=== PATIENT | female | born 1960 | race Caucasian/White ===

== ENCOUNTER 2016-12-26 23:24 | Inpatient (IN) | payer OTHER ==
[~2016-12-26] VITALS: Ht 162.6 cm; Wt 80.1 kg
[2016-12-26 23:28] VITALS: BP 169/81; PULSE 99; RESP 18; TEMP 98.1; O2SAT 100
--- NOTE | 2016-12-26 23:50 | PD ---
HPI Chief Complaint: Fall Time Seen by Provider: 23:30 Travel History International Travel<30 days: No Contact w/Intl Traveler<30days: No Traveled to known affect area: No History of Present Illness HPI 56-year-old female complains of right ankle pain. Patient treatment fell this evening. Patient denies loss of consciousness. Patient denies any headache or neck pain. Patient denies any chest pain or shortness of breath. Patient denies abdominal pain. Patient complaining sharp pain localized to right ankle. Patient denies any pain radiation. Patient denies any medical problem. Patient's not on any routine medication. PFSH Past Medical History ?: Not LMP: menapause Social History Tobacco Use: No Allergies-Medications (Allergen,Severity, Reaction): Coded Allergies: Augmentin (Verified Allergy, Unknown, 12/26/16) Sulfa (Verified Allergy, Unknown, 12/26/16) Reported Meds & Prescriptions Reported Meds & Active Scripts Active Aspirin EC (Aspirin) 325 Mg Tabdr 325 Mg PO DAILY Frederick (Hydrocodone-Acetaminophen) 10-325 Mg Tab 1-2 Tab PO Q4H PRN Review of Systems General / Constitutional: No: Fever Eyes: No: Visual changes HENT: No: Headaches Cardiovascular: No: Chest Pain or Discomfort Respiratory: No: Shortness of Breath Gastrointestinal: No: Abdominal Pain Genitourinary: No: Dysuria Musculoskeletal: Positive: Pain Skin: No Rash Neurologic: No: Weakness Psychiatric: No: Depression Endocrine: No: Polydipsia Hematologic/Lymphatic: No: Easy Bruising Physical Exam Narrative GENERAL: Well-nourished, well-developed patient. SKIN: Focused skin assessment warm/dry. HEAD: Normocephalic. EYES: No scleral icterus. No injection or drainage. NECK: Supple, trachea midline. No JVD or lymphadenopathy. CARDIOVASCULAR: Regular rate and rhythm without murmurs, gallops, or rubs. RESPIRATORY: Breath sounds equal bilaterally. No accessory muscle use. GASTROINTESTINAL: Abdomen soft, non-tender, nondistended. MUSCULOSKELETAL: No cyanosis, or edema. BACK: Nontender without obvious deformity. No CVA tenderness. Patient has a 6 cm laceration medial malleolus of the right ankle with bony exposure and ankle dislocation laterally. DP pulse present dorsal aspect right foot. Good capillary refill. Sensory function intact. Data Data Last Documented VS Vital Signs Date Time Temp Pulse Resp B/P Pulse Ox O2 Delivery O2 Flow Rate FiO2 12/27/16 01:25 94 2.00 12/27/16 01:09 97 18 137/75 Room Air 12/26/16 23:28 98.1 Orders Electrocardiogram (12/26/16 23:38) Complete Blood Count With Diff (12/26/16 23:38) Prothrombin Time / Inr (Pt) (12/26/16 23:38) Act Partial Throm Time (Ptt) (12/26/16 23:38) Urinalysis - C+S If Indicated (12/26/16 23:38) Chest, Single Ap (12/26/16 23:38) Iv Access Insert/Monitor (12/26/16 23:38) Ecg Monitoring (12/26/16 23:38) Oximetry (12/26/16 23:38) Urinary Catheter Insert/Apply (12/26/16 23:38) Type And Screen (12/26/16 23:38) Ankle, Limited (Ap&Lat) (12/26/16 23:38) Splint Or Brace Apply/Monitor (12/26/16 23:44) Sodium Chlor 0.9% 1000 Ml Inj (Ns 1000 M (12/27/16 00:00) Clindamycin Inj (Cleocin Inj) (12/27/16 00:00) Morphine Inj (Morphine Inj) (12/27/16 00:00) Ondansetron Inj (Zofran Inj) (12/27/16 00:00) Midazolam Inj (Versed Inj) (12/27/16 00:00) Comprehensive Metabolic Panel (12/27/16 00:04) Ankle, Limited (Ap&Lat) (12/27/16 ) Morphine Inj (Morphine Inj) (12/27/16 02:00) Admit Order (Ed Use Only) (12/27/16 02:09) Consult Orthopedic (12/27/16 ) Labs Laboratory Tests Test 12/26/16 12/27/16 12/27/16 12/27/16 23:55 00:42 00:44 01:45 White Blood Count 9.1 TH/MM3 Red Blood Count 4.52 MIL/MM3 Hemoglobin 15.5 GM/DL Hematocrit 44.7 % Mean Corpuscular Volume 98.9 FL Mean Corpuscular Hemoglobin 34.3 PG Mean Corpuscular Hemoglobin 34.7 % Concent Red Cell Distribution Width 15.7 % Platelet Count 207 TH/MM3 Mean Platelet Volume 9.8 FL Neutrophils (%) (Auto) 55.1 % Lymphocytes (%) (Auto) 29.6 % Monocytes (%) (Auto) 10.0 % Eosinophils (%) (Auto) 3.7 % Basophils (%) (Auto) 1.6 % Neutrophils # (Auto) 5.0 TH/MM3 Lymphocytes # (Auto) 2.7 TH/MM3 Monocytes # (Auto) 0.9 TH/MM3 Eosinophils # (Auto) 0.3 TH/MM3 Basophils # (Auto) 0.1 TH/MM3 CBC Comment AUTO DIFF Differential Comment AUTO DIFF CONFIRMED Blood Type O NEGATIVE Antibody Screen NEGATIVE Blood Bank Comment Prothrombin Time 10.4 SEC Prothromb Time International 0.9 RATIO Ratio Activated Partial 25.6 SEC Thromboplast Time Sodium Level 138 MEQ/L Potassium Level 6.0 MEQ/L Chloride Level 105 MEQ/L Carbon Dioxide Level 25.6 MEQ/L Anion Gap 7 MEQ/L Blood Urea Nitrogen 10 MG/DL Creatinine 0.71 MG/DL Estimat Glomerular Filtration 85 ML/MIN Rate Random Glucose 101 MG/DL Calcium Level 8.9 MG/DL Total Bilirubin 0.4 MG/DL Aspartate Amino Transf 121 U/L (AST/SGOT) Alanine Aminotransferase 97 U/L (ALT/SGPT) Alkaline Phosphatase 83 U/L Total Protein 8.4 GM/DL Albumin 3.8 GM/DL Urine Color LIGHT-YELLOW Urine Turbidity CLEAR Urine pH 6.0 Urine Specific [place] 1.005 Urine Protein NEG mg/dL Urine Glucose (UA) NEG mg/dL Urine Ketones NEG mg/dL Urine Occult Blood NEG Urine Nitrite NEG Urine Bilirubin NEG Urine Urobilinogen LESS THAN 2.0 MG/DL Urine Leukocyte Esterase TRACE Urine RBC LESS THAN 1 /hpf Urine WBC 4 /hpf Urine Squamous Epithelial 1 /hpf Cells Microscopic Urinalysis Comment CULT NOT INDICATED MDM Medical Decision Making Medical Screen Exam Complete: Yes Emergency Medical Condition: Yes Interpretation(s) Last Impressions Ankle X-Ray 12/27/16 0000 Signed Impressions: Service Date/Time: Tuesday, December 27, 2016 01:40 - CONCLUSION: 1. Satisfactory post reduction of the previously noted joint dislocation. 2. Trimallor fracture. John Robb MD Chest X-Ray 12/26/168 Signed Impressions: Service Date/Time: Tuesday, December 27, 2016 00:28 - CONCLUSION: Unremarkable exam. John Robb MD Ankle X-Ray 12/26/168 Signed Impressions: Service Date/Time: Tuesday, December 27, 2016 00:22 - CONCLUSION: Fracture and joint dislocation the mortise joint. John Robb MD 3:13 AM. CBC within normal limit. Potassium 6.0. UA is negative. Differential Diagnosis Differential diagnosis including open fracture with dislocation right ankle. Narrative Course 56-year-old female with right ankle injury. Normal saline solution 1 25 cc an hour. Morphine 4 mg IV. Zofran 4 mg IV. VERSED 5 mg IV. Clindamycin 600 mg IV. Craven splint applied right ankle postreduction. Patient was given medications by Dr. Guadalupe. Critical Care Narrative Aggregate critical care time was 30 minutes. Time to perform other separately billable procedures was not included in the critical care time. My time did not include minutes spent treating any other patients simultaneously or on activities that did not directly contribute to the patient's treatment. The services I provided to this patient were to treat and/or prevent clinically significant deterioration that could result in: I provided critical care services requiring my management, as noted below: Chart data review, documentation time, medication orders and management, vital sign assessments/reviewing monitor data, ordering and reviewing lab tests, ordering and interpreting/reviewing x-rays and diagnostic studies, care of the patient and discussion of the patient with the admitting physicians. Procedures Procedure Narrative Conscious sedation procedure. Patient was connected to secretary office clerk and pulse oximetry monitor. O2 2 L nasal cannula. IV established. Patient was given Versed 5 mg IV and morphine 4 mg IV. Patient was well sedated. Reduction of right ankle dislocation performed with gentle traction. Betadine dressing applied to the wound. The right ankle was well padded with gauze. Craven splint applied. Postreduction x -ray obtained. Patient woke up instable condition postprocedure. Diagnosis Primary Impression: Open trimalleolar fracture of right ankle Qualified Code: S82.851C - Open trimalleolar fracture of right ankle, type III , initial encounter Additional Impressions: Dislocation of ankle, right, open Qualified Code: S93.04XA - Dislocation of ankle, right, open, initial encounter Hyperkalemia Admitting Information Admitting Physician Requests: Admit Scripts Aspirin DR (Aspirin EC)325 Mg [id number] Mg PO DAILY #30 TAB Ref 0 Prov:Wang Castillo MD 12/27/16 Hydrocodone-Acetaminophen ([place])10-325 Mg Tab1-2 Tab PO Q4H PRN (PAIN) #60 TAB Ref 0 Prov:Wang Castillo MD 12/27/16 Jamey Hodges MD December 26, 2016 23:50
[2016-12-27] VITALS (11 sets, daily range): BP systolic 108–137; BP diastolic 63–78; PULSE 75–99; RESP 15–18; TEMP 95.8–98.1; O2SAT 94–99
[2016-12-27] MEDS ORDERED: SODIUM CHLOR 0.9% 1000 ML INJ 1,000 ML IV SCH
[2016-12-27] MEDS ORDERED: ONDANSETRON HCL 4 MG/2 ML VIAL IV PUSH ONE
[2016-12-27] MEDS ORDERED: MIDAZOLAM HCL 5 MG/ML VIAL (1 ML) IV PUSH ONE
[2016-12-27] MEDS ORDERED: CLINDAMYCIN INJ 600 MG in SODIUM CHLORIDE 0.9% INJ 100 ML IV ONE ×2
[2016-12-27 00:22] LABS: BASOPHIL # 0.1 TH/MM3 (0-0.2); BASOPHIL % 1.6 % (0.0-2.0); EOSINOPHIL # 0.3 TH/MM3 (0-0.4); EOSINOPHIL % 3.7 % (0.0-4.0); HEMATOCRIT 44.7 % (35.0-46.0); LYMPH % 29.6 % (9.0-44.0); LYMPHOCYTE # 2.7 TH/MM3 (1.0-4.8); MEAN CELL VOLUME 98.9 FL (80.0-100.0); MEAN CORPUSCULAR HEMOGLOBIN 34.3 PG (27.0-34.0); MEAN CORPUSCULAR HGB CONC 34.7 % (32.0-36.0); NEUT % 55.1 % (16.0-70.0); PLATELET COUNT 207 TH/MM3 (150-450); RED BLOOD COUNT 4.52 MIL/MM3 (4.00-5.30); RED CELL DISTRIBUTION WIDTH 15.7 % (11.6-17.2); WHITE BLOOD COUNT 9.1 TH/MM3 (4.0-11.0)
[2016-12-27 00:45] LABS: ALKALINE PHOSPHATASE 83 U/L (45-117); TOTAL BILIRUBIN ADULT 0.4 MG/DL (0.2-1.0)
[2016-12-27 00:54] LABS: HEMO FLAGS AUTO DIFF
--- NOTE | 2016-12-27 00:56 | RADRPT ---
EXAM DATE/TIME: 12/27/2016 00:28 [facility] COMPARISON: No previous studies available for comparison. INDICATIONS : Shortness of breath. Evaluation for any pulmonary disease as patient is having ankle surgery. MEDICAL HISTORY : None. SURGICAL HISTORY : None. ENCOUNTER: Initial ACUITY: 1 day PAIN SCORE: 0/10 LOCATION: Bilateral chest FINDINGS: A single view of the chest demonstrates the lungs to be symmetrically aerated without evidence of mas s, infiltrate or effusion. The cardiomediastinal contours are unremarkable. Osseous structures are intact. CONCLUSION: Unremarkable exam. John Robb MD on December 27, 2016 at 0:54 Board Certified Radiologist. This report was verified electronically.
--- NOTE | 2016-12-27 01:01 | RADRPT ---
EXAM DATE/TIME: 12/27/2016 00:22 [facility] COMPARISON: No previous studies available for comparison. INDICATIONS : Open right dislocation with possible fracture of the right ankle after a fall. MEDICAL HISTORY : None. SURGICAL HISTORY : None. ENCOUNTER: Initial ACUITY: 1 day PAIN SCORE: 10/10 LOCATION: Right Ankle FINDINGS: The 2 views demonstrate a fracture joint dislocation at the mortise joint. There appears to be a frac ture involving the distal fibula and posterior tibia. There is joint dislocation at the mortise joint . CONCLUSION: Fracture and joint dislocation the mortise joint. John Robb MD on December 27, 2016 at 0:58 Board Certified Radiologist. This report was verified electronically.
[2016-12-27 01:13] LABS: ALT (GPT) 97 U/L (10-53); ANION GAP 7 MEQ/L (5-15); AST (GOT) 121 U/L (15-37); BICARBONATE 25.6 MEQ/L (21.0-32.0); BLOOD UREA NITROGEN 10 MG/DL (7-18); CHLORIDE 105 MEQ/L (98-107); GLOMERULAR FILTRATION RATE 85 ML/MIN (>89); SODIUM (NA) 138 MEQ/L (136-145)
[2016-12-27 01:28] LABS: APTT (PATIENT) 25.6 SEC (24.3-30.1); INTERNATIONAL NORMALIZED RATIO 0.9 RATIO; PROTHROMBIN TIME - PATIENT 10.4 SEC (9.8-11.6)
--- NOTE | 2016-12-27 01:52 | RADRPT ---
EXAM DATE/TIME: 12/27/2016 01:40 [facility] COMPARISON: ANKLE RIGHT LIMITED (AP&LAT), December 27, 2016, 0:22. INDICATIONS : Post reduction. MEDICAL HISTORY : None. SURGICAL HISTORY : None. ENCOUNTER: Subsequent ACUITY: 1 day PAIN SCORE: Non-responsive. LOCATION: Right ankle. FINDINGS: There is good alignment on this post reduction view compared to the prior study. There is good alignm ent the mortise joint. Fractures are identified involving the distal fibula and medial malleolus. The re is also a fracture of the posterior malleolus on the lateral view. CONCLUSION: 1. Satisfactory post reduction of the previously noted joint dislocation. 2. Trimallor fracture. John Robb MD on December 27, 2016 at 1:49 Board Certified Radiologist. This report was verified electronically.
[2016-12-27 01:57] LABS: BLOOD, URINE NEG (NEG); COMMENT (UR) CULT NOT INDICATED; CULTURE IF INDICATED CULT NOT INDICATED; GLUCOSE,URINE NEG (NEG); KETONE, URINE NEG (NEG); NITRITE,URINE NEG (NEG); SQUAMOUS EPITHELIAL CELL URINE 1 /hpf (0-5); URINE COLOR LIGHT-YELLOW (YELLW/STRAW)
[2016-12-27] MEDS ORDERED: MORPHINE SULFATE 4 MG/ML INJ IV PUSH ONE ×2 (02:00)
[2016-12-27] MEDS ORDERED: ACETAMINOPHEN 325 MG TAB PO PRN (02:15)
[2016-12-27] MEDS ORDERED: CALCIUM GLUCONATE 10% 1 GM/10 ML VIAL IV PUSH ONE (02:15)
[2016-12-27] MEDS ORDERED: BISACODYL 10 MG SUPP RECTAL PRN (02:15)
[2016-12-27] MEDS ORDERED: DEXTROSE 50% IN WATER 50 ML SYRINGE IV ONE (02:15)
[2016-12-27] MEDS ORDERED: MORPHINE SULFATE 4 MG/ML INJ IV PRN (02:15)
[2016-12-27] MEDS ORDERED: ONDANSETRON HCL 4 MG/2 ML VIAL IVP PRN ×2 (02:15→09:15)
[2016-12-27] MEDS ORDERED: SODIUM CHLORIDE 0.9% FLUSH 10 ML FLUSH IV FLUSH PRN (02:15)
[2016-12-27] MEDS ORDERED: INSULIN HUMAN REGULAR 1,000 UNITS/10 ML VIAL IV PUSH ONE (02:15)
[2016-12-27] MEDS: SODIUM CHLOR 0.9% 1000 ML INJ 1,000 ML IV SCH ×2 (02:51→15:24)
[2016-12-27 02:52] LABS: SCAN/DIFF AUTO DIFF CONFIRMED
[2016-12-27] MEDS: SODIUM CHLORIDE 0.9% FLUSH 10 ML FLUSH IV FLUSH SCH ×3 (02:57→20:34)
--- NOTE | 2016-12-27 04:03 | HHI.HP ---
[facility] Service [place] [facility] Primary Care Physician Unknown Admission Diagnosis compound fracture right ankle Diagnoses: (1) Open trimalleolar fracture of right ankle Diagnosis: Principal (2) Hyperkalemia Diagnosis: Principal (3) Dehydration Diagnosis: Principal (4) Elevated LFTs Diagnosis: Principal (5) HTN (hypertension) Diagnosis: Principal (6) Tobacco abuse Diagnosis: Principal Travel History International Travel<30 Days: No Contact w/Intl Traveler <30 Da: No Traveled to Known Affected Are: No History of Present Illness This is a 56-year-old female with no reported PMH who was brought to the ER secondary to right ankle pain after fall. Pt visiting from out of town and staying at [facility], states she tripped on the lip of the balcony door and twisted her ankle, felt immediate pain and unable to bare weight. On arrival, BP 169/81, HR 99, O2 sat 100% on RA, Afebrile. CBC unremarkable except for Hgb 15.5. K+ 6.0. GFR 85. AST 121, ALT 97. INR 0.9. UA negative. Ankle X-ray with fracture and joint dislocation, s/p reduction in ER. Repeat Ankle X-ray w / satisfactory post reduction of joint dislocation, trimalleolar fracture. CXR w/ no acute findings. Dr. Castillo consulted by ER physician, plan is for surgical intervention in am. Review of Systems Except as stated in HPI: all other systems reviewed are Neg ROS: 14 point review of systems otherwise negative. Past Family Social History Past Medical History PMH: None Past Surgical History PAST SURGICAL HISTORY: Salivary Gland Surgery Allergies: Coded Allergies: Augmentin (Verified Allergy, Unknown, 12/26/16) Sulfa (Verified Allergy, Unknown, 12/26/16) Family History PAST FAMILY HISTORY: Reviewed. No h/o DM or CAD Social History PAST SOCIAL HISTORY: Occasional alcohol. Positive for tobacco. Negative for drugs. Physical Exam Vital Signs Vital Signs Date Time Temp Pulse Resp B/P Pulse Ox O2 Delivery O2 Flow Rate FiO2 12/27/16 03:16 86 18 125/76 96 12/27/16 02:33 85 18 119/63 97 Nasal Cannula 4 12/27/16 01:25 94 2.00 12/27/16 01:09 97 18 137/75 99 Room Air 12/26/16 23:28 98.1 99 18 169/81 100 Physical Exam PE: GENERAL: Middle-aged female in no acute distress, sleepy after sedation. HEENT: PERRLA, EOMI. No scleral icterus or conjunctival pallor. No lid lag or facial droop. CARDIOVASCULAR: Regular rate and rhythm. No obvious murmurs to auscultation. No chest tenderness to palpation. RESPIRATORY: No obvious rhonchi or wheezing. Clear to auscultation. Breath sounds equal bilaterally. GASTROINTESTINAL: Abdomen soft, non-tender, nondistended. BS normal. MUSCULOSKELETAL: Extremities without clubbing, cyanosis, or edema. No obvious deformities. Decreased ROM of right ankle due to injury, s/p reduction. NEUROLOGICAL: Awake, alert and oriented x4. No focal neurologic deficits. Moving both upper and lower extremities spontaneously. Laboratory Laboratory Tests Test 12/26/16 12/27/16 12/27/16 12/27/16 23:55 00:42 00:44 01:45 White Blood Count 9.1 Red Blood Count 4.52 Hemoglobin 15.5 Hematocrit 44.7 Mean Corpuscular Volume 98.9 Mean Corpuscular Hemoglobin 34.3 Mean Corpuscular Hemoglobin 34.7 Concent Red Cell Distribution Width 15.7 Platelet Count 207 Mean Platelet Volume 9.8 Neutrophils (%) (Auto) 55.1 Lymphocytes (%) (Auto) 29.6 Monocytes (%) (Auto) 10.0 Eosinophils (%) (Auto) 3.7 Basophils (%) (Auto) 1.6 Neutrophils # (Auto) 5.0 Lymphocytes # (Auto) 2.7 Monocytes # (Auto) 0.9 Eosinophils # (Auto) 0.3 Basophils # (Auto) 0.1 CBC Comment AUTO DIFF Differential Comment AUTO DIFF CONFIRMED Blood Type O NEGATIVE Antibody Screen NEGATIVE Blood Bank Comment Prothrombin Time 10.4 Prothromb Time International 0.9 Ratio Activated Partial 25.6 Thromboplast Time Sodium Level 138 Potassium Level 6.0 Chloride Level 105 Carbon Dioxide Level 25.6 Anion Gap 7 Blood Urea Nitrogen 10 Creatinine 0.71 Estimat Glomerular Filtration 85 Rate Random Glucose 101 Calcium Level 8.9 Total Bilirubin 0.4 Aspartate Amino Transf 121 (AST/SGOT) Alanine Aminotransferase 97 (ALT/SGPT) Alkaline Phosphatase 83 Total Protein 8.4 Albumin 3.8 Urine Color LIGHT-YELLOW Urine Turbidity CLEAR Urine pH 6.0 Urine Specific [place] 1.005 Urine Protein NEG Urine Glucose (UA) NEG Urine Ketones NEG Urine Occult Blood NEG Urine Nitrite NEG Urine Bilirubin NEG Urine Urobilinogen LESS THAN 2.0 Urine Leukocyte Esterase TRACE Urine RBC LESS THAN 1 Urine WBC 4 Urine Squamous Epithelial 1 Cells Microscopic Urinalysis Comment CULT NOT INDICATED Result Diagram: 12/26/16 3618 12/27/16 0044 Assessment and Plan Problem List: (1) Open trimalleolar fracture of right ankle ICD Code: S82.851B Status: Acute (2) Dehydration ICD Code: E86.0 Status: Acute (3) Hyperkalemia ICD Code: E87.5 Status: Acute (4) Elevated LFTs ICD Code: R94.5 Status: Acute (5) HTN (hypertension) ICD Code: I10 Status: Acute (6) Tobacco abuse ICD Code: Z72.0 Status: Acute Assessment and Plan A/P: 1. Right Open Ankle Fx: s/p mechanical trip and fall, Ankle X-ray w/ fracture and joint dislocation, s/p reduction in ER w/ repeat Ankle X-ray showing satisfactory post reduction of joint dislocation and trimalleolar fracture, images reviewed by me. Dr. Castillo consulted by ER physician, plan is for surgical intervention in am. NPO, IVF, analgesics/antiemetics as needed. 2. Dehydration: GFR 85, no previous labs for comparison. +Hemoconcentrated w / Hgb 15.5, possibly related to tobacco abuse as well. IVF for hydration, repeat labs in am. 3. Hyperkalemia: K+ 6.0, give Ca/Insulin/D50, repeat labs in am. 4. Elevated LFTs: AST 121, ALT 97, ALP 83, no previous labs for comparison. Repeat labs in am. 5. HTN: BP on arrival, 169/81, HR 99, likely compounded by pain, no h/o HTN, BP currently 125/76, HR 86, will monitor. 6. Tobacco Abuse: Counselled. NicoDerm prn if needed. 7. DVT Prophylaxis: Anticoagulation post op per Ortho 8. Social work for DC planning as needed. 9. Case discussed at length with ER physician. Physician Certification 2 Midnight Certification Type: Admission for Inpatient Services Order for Inpatient Services The services are ordered in accordance with Medicare regulations or non- Medicare payer requirements, as applicable. In the case of services not specified as inpatient-only, they are appropriately provided as inpatient services in accordance with the 2-midnight benchmark. Estimated LOS (days): 2 days is the estimated time the patient will need to remain in the hospital, assuming treatment plan goals are met and no additional complications. Post-Hospital Plan: Not yet determined Problem Qualifiers (1) Open trimalleolar fracture of right ankle: Qualified Code: S82.851C - Open trimalleolar fracture of right ankle, type III , initial encounter Ani Guadalupe MD December 27, 2016 04:03
[2016-12-27] MEDS ORDERED: GENTAMICIN SULFATE 80 MG/2 ML VIAL IRRIGATION ONE (07:14)
[2016-12-27] MEDS ORDERED: ceFAZolin INJ 1,000 MG VIAL IV ONE (07:43)
[2016-12-27] MEDS ORDERED: VANCOMYCIN HCL 1000 MG VIAL ONE (07:44)
--- NOTE | 2016-12-27 08:11 | MB ---
cc: MADIHA VANCE DATE OF CONSULTATION: 12/27/2016 REASON FOR CONSULTATION: Right open ankle trimalleolar fracture. HISTORY OF PRESENT ILLNESS: The patient is a 56-year-old female who says she does not have any significant past medical history, she is brought into the emergency room after a trip. The patient was vacationing here from [place]. She was staying in a local condo. She says that there was a lip on the bacony for which she tripped an d twisted her ankle, she felt immediate pain, noticed that the skin was broken and she had deformity about the ankle with an open fracture. The patient was seen by the emergency room physician. The emergency room physician took x-rays, recognize the injury as far as the displacement and reduced the ankle. Had the ankle splinted, gave the patient intravenous clindamycin at 2:00 a.m. the emergency room physician contacted me, reviewed the plan of care that had been established and we recommended keeping the patient n.p.o. for urgent surgical management of this condition. The patient does not describe any numbness or tingling about the toes. REVIEW OF SYSTEMS The 12 point review of systems is negative except as noted in the history of present illness. PAST MEDICAL HISTORY: None . PAST SURGICAL HISTORY: She has had salivary gland surgery. ALLERGIES AUGMENTIN CAUSES BAD NAUSEA. SULFA FAMILY HISTORY Noncontributory. SOCIAL HISTORY The patient does smoke tobacco. Drinks occasional alcohol. PHYSICAL EXAMINATION: VITAL SIGNS: The patients temperature is 96.8. Her pulse is 83, respirations 18, blood pressure 134/77. IN GENERAL: The patient is awake, alert and oriented x3. She has normal affect insight and judgment. She is in mild distress due to her injury. HEAD, EARS, EYES, NOSE, AND THROAT: Her head is atraumatic. NECK: Neck is supple. Oropharynx is moist. Extraocular muscles intact. HEART: Regular rate and rhythm. LUNGS: Clear to auscultation bilaterally. ABDOMEN: The abdomen is soft, nontender, nondistended. BACK: The back has no CVA tenderness. Bilateral upper extremities shows good range of motion of shoulders, elbows and wrists with no obvious deformity. EXTREMITIES: The examination of the right lower extremity is currently splinted. I did not see bloody drainage on this splint, she has brisk capillary refills about the toes, she has sensation distally about the toes, the left knee has no swelling. She moves her left foot. LABORATORY FINDINGS: Laboratory studies shows a white cell count of 9.1, hematocrit 44.7, platelets of 207, creatinine 0.71, glucose 101. RADIOLOGIC: X-rays and report reviewed for multiple images including pre and post reduction ankle x-rays, shows the patient has a dislocation of the ankle along with a trimalleolar fracture which is significantly displaced, post reduction x-rays show that the mortise is an much better position now. But the fractures were evident and displaced. IMPRESSION Right open trimalleolar ankle fracture/dislocation, status post closed reduction in the emergency room. DECISION MAKING: This is a very serious injury to the ankle, both from the wound status, since the ankle fracture-dislocation is open this increases the chance of infection significantly and also soft tissue stripping. There are multiple fractures as well around the ankle, nonoperative management has a high chances of significant failure leading to severe loss of function of the lower extremity including the possibility for developing interarticular infection, osteomyelitis, malunion of the fractures, inability to ambulate and chronic pain and deformity. I do recommend urgent surgical management for taking care of this prior which will consist of initial an irrigation and debridement. Additionally will evaluate the soft tissues in the operating room and making determination whether we can move forward with definitive fixation such as an ORIF of the ankle versus temporary external fixation with a potential plan for a coming back for a repeat debridement and open reduction, internal fixation depending on clinical course. The patient will prior intravenous antibiotics as well. Even with all this treatment. There is still chance of developing chronic infection or acute infection. The patient says the risks of surgery include on to injury also bleeding, infection, failure of the hardware and need for further operation, continue pain, loss of range of motion of the ankle and inability to ambulate, DVT, pulmonary embolus, pneumonia and . All questions have been answered. The patient wants to move forward with surgical management. MD NOLAN Newsome/morelia /7:33 AM /7:57 AM [facility]
[2016-12-27] MEDS ORDERED: ACETAMINOPHEN 1000 MG/100 ML VIAL IV ONE (08:17)
[2016-12-27] MEDS ORDERED: GENTAMICIN SULFATE 80 MG/2 ML VIAL ONE ×2 (08:19→11:05)
--- NOTE | 2016-12-27 09:10 | RADRPT ---
EXAM DATE/TIME: 12/27/2016 08:48 [facility] COMPARISON: ANKLE RIGHT LIMITED (AP&LAT), December 27, 2016, 1:40. INDICATIONS : ORIF Right ankle fracture. MEDICAL HISTORY : None. SURGICAL HISTORY : None. ENCOUNTER: Subsequent ACUITY: 1 day PAIN SCORE: Non-responsive. LOCATION: Right ankle. CONCLUSION: Fluoroscopic images right ankle are obtained during placement of compression and along the medial mal leolus screws along the distal fibula. Anthony Piper MD on December 27, 2016 at 9:07 Board Certified Radiologist. This report was verified electronically.
[2016-12-27] MEDS ORDERED: NALOXONE HCL 0.4 MG/ML AMP IV PRN (09:15)
[2016-12-27] MEDS ORDERED: MORPHINE SULFATE 4 MG/ML INJ IV PUSH PRN (09:15)
[2016-12-27] MEDS ORDERED: ACETAMINOPHEN/HYDROcodone 325 MG/10 MG TAB PO PRN (09:15)
[2016-12-27] MEDS ORDERED: MISCELLANEOUS PHARMACY INFORMATION XX ONE (09:15)
[2016-12-27] MEDS ORDERED: Post-op Orders (for Pharmacy) MISC XX ONE (09:15)
[2016-12-27] MEDS ORDERED: diphenhydrAMINE HCL 25 MG CAP PO PRN (09:15)
[2016-12-27] MEDS ORDERED: MISCELLANEOUS NURSING INFORMATION XX PRN (09:15)
[2016-12-27] MEDS ORDERED: SODIUM CHLORIDE 0.9% FLUSH 5 ML FLUSH IVF PRN (09:15)
--- NOTE | 2016-12-27 09:18 | PD.OP ---
cc: Wang Castillo MD Operative Report Date of Surgery: December 27, 2016 Preoperative Diagnosis: Right ankle trimalleolar open (grade 2) fracture dislocation Postoperative Diagnosis: Same Procedure: Right ankle irrigation and debridement of skin through bone for open fracture. Right ankle open reduction and internal fixation of trimalleolar ankle fracture without fixation of the posterior lip Anesthesia: Gen. Surgeon: Wang Castillo Installer Interior Assemblies(s): MELODY Brown The surgical procedure was assisted by my Advanced Registered Nurse Practitioner. My FIELD AGRONOMIST presence was necessary throughout this case for the manipulation and positioning of the surgical extremity. My FIELD AGRONOMIST was assisting me throughout the duration of this procedure. The skill set of an Advance Registered Nurse Practitioner was medically necessary to complete this procedure. During the surgical case, the surgical oncologist was working at the back table and the Advance Registered Nurse Practitioner was directly assisting me. Operation and Findings: Tourniquet time: 0 minutes at 250 mmHg of pressure Estimated blood loss: 100 cc The patient received intravenous vancomycin and Ancef. After the appropriate anesthesia was administered, the patient's leg was prepped and draped in the usual sterile fashion. Note that there was an 8 cm wound on the medial aspect of the ankle. There was no gross contamination. We started with debridement of the medial ankle by sharply debriding the skin edges medially. The saphenous vein seemed to be thrombotic. The posterior tibial tendon was intact. The medial malleolar fracture was significantly displaced. We curetted the edges of the bone both proximally and distally. No gross contamination was noted. Small area of comminution was removed anteriorly. The visualized portion of the talus was unremarkable. We then thoroughly irrigated with 3 L including intra-articular irrigation. This was done with antibiotic laden saline. We then close reduced the ankle fracture dislocation. We made a standard incision over the lateral aspect of the ankle. We then dissected through the deep fascia down to the fracture site. The edges of the fracture were identified. Hematoma was evacuated and the fracture was irrigated. The fracture was anatomically reduced with a reduction clamp, verified both visually and via fluoroscopy. A 2.7 lag screw was placed from anterior to posterior obliquely in standard fashion with good fixation of the fracture site. We then applied a pre-contoured Synthes lateral malleolus plate over the fracture. We initially secured the plate using a non-locking screw in the oblong screw hole. This gave nice compression of the plate to the bone. We then secured the fracture with multiple distal and proximal locking screws. We took final fluoroscopic imaging of the ankle, including an AP, lateral, and mortise view. The fracture and the mortise were anatomic. We found no intra- articular penetration of the screws. We then anatomically reduced the medial malleolus fracture. Given its size we were able to place a single 4.0 Synthes partially threaded cannulated screw with excellent purchase into the center of the fracture fragment. The fracture remained anatomic. The posterior malleolus fracture was fairly small and had very minimal displacement. Therefore we decided this did not require definitive hardware. The patient had full range of motion of the ankle with no crepitus. No instability was noted. We irrigated the incisions thoroughly. We then closed the deep fascia as much as possible with 0 Vicryl. Skin was closed with 2-0 Vicryl followed by 3-0 nylon. The leg was dressed and a splint was applied. The postoperative plan is for nonweightbearing to the extremity. We may be able to start early range of motion. The patient will require 3 days of intravenous antibiotics for the open fracture. We will place the patient on DVT prophylaxis with ASA. Wang Castillo MD December 27, 2016 09:18
[2016-12-27] MEDS ORDERED: HYDR-3366 PO (09:21)
[2016-12-27] MEDS ORDERED: ASPI325T33 PO (09:21)
[2016-12-27] MEDS ORDERED: fentaNYL CITRATE 250 MCG/5 ML AMP ONE (09:46)
[2016-12-27] MEDS: DEXT 5%-NACL 0.45% 1000 ML INJ 1,000 ML IV SCH ×2 (10:00→22:57)
[2016-12-27] MEDS ORDERED: *morphine SULFATE 8 MG/ML PERIprocedure ONLY ONE (10:07)
--- NOTE | 2016-12-27 13:30 | EKG ---
Date Performed: 12/27/2016 Time Performed: 00:13:55 PTAGE: 56 years EKG: Sinus rhythm NONSPECIFIC T-WAVE ABNORMALITY BORDERLINE ECG NO PREVIOUS TRACING DOCTOR: Leta Farr Interpretating Date/Time 12/27/2016 13:28:35
[2016-12-27] MEDS ORDERED: WALKER WHEELS/F1 MIS (18:45)
[2016-12-27] MEDS: DOCUSATE SODIUM 50 MG/SENNA 8.6 MG TAB PO SCH (20:34)
[2016-12-27] MEDS ORDERED: SODIUM CHLORIDE 0.9% FLUSH 5 ML FLUSH IVF SCH (21:00)
[2016-12-27] MEDS: ACETAMINOPHEN/HYDROcodone 325 MG/10 MG TAB PO PRN (23:23)
[2016-12-28] VITALS (8 sets, daily range): BP systolic 104–167; BP diastolic 55–81; PULSE 82–105; RESP 16–18; TEMP 97.6–99.5; O2SAT 94–98
[2016-12-28] MEDS: DEXT 5%-NACL 0.45% 1000 ML INJ 1,000 ML IV SCH ×2 (05:09→15:09)
[2016-12-28 07:15] LABS: AUTOMATED NEUTROPHIL # 5.5 TH/MM3 (1.8-7.7); BASOPHIL % 0.5 % (0.0-2.0); EOSINOPHIL # 0.2 TH/MM3 (0-0.4); EOSINOPHIL % 2.4 % (0.0-4.0); HEMATOCRIT 37.4 % (35.0-46.0); HEMO FLAGS DIFF FINAL; LYMPH % 14.8 % (9.0-44.0); LYMPHOCYTE # 1.2 TH/MM3 (1.0-4.8); MEAN CELL VOLUME 101.3 FL (80.0-100.0); MEAN CORPUSCULAR HEMOGLOBIN 33.3 PG (27.0-34.0); MEAN CORPUSCULAR HGB CONC 32.9 % (32.0-36.0); MONO % 15.8 % (0.0-8.0); NEUT % 66.5 % (16.0-70.0); PLATELET COUNT 147 TH/MM3 (150-450); RED BLOOD COUNT 3.69 MIL/MM3 (4.00-5.30); RED CELL DISTRIBUTION WIDTH 15.3 % (11.6-17.2); WHITE BLOOD COUNT 8.3 TH/MM3 (4.0-11.0)
[2016-12-28] MEDS: ACETAMINOPHEN/HYDROcodone 325 MG/10 MG TAB PO PRN ×3 (07:21→20:22)
[2016-12-28] MEDS: MULTIVITAMINS/MINERALS THERAPEUTIC TAB PO SCH (07:50)
[2016-12-28] MEDS: DOCUSATE SODIUM 50 MG/SENNA 8.6 MG TAB PO SCH ×2 (07:50→20:22)
[2016-12-28] MEDS: ASPIRIN EC 325 MG TABEC PO SCH (07:50)
--- NOTE | 2016-12-28 07:57 | PD.ORT.PN ---
Subjective Post Op Day #: 1 Subjective Remarks Patient resting comfortably in bed with minimal pain to the ankle. Objective Vitals Vital Signs Date Time Temp Pulse Resp B/P Pulse Ox O2 Delivery O2 Flow Rate FiO2 12/28/16 04:20 98.6 82 16 110/65 98 12/28/16 00:00 99.5 83 17 111/55 97 12/27/16 20:15 98 Nasal Cannula 3.00 12/27/16 20:05 98.1 75 18 116/69 99 12/27/16 16:00 95.8 79 16 108/69 98 12/27/16 12:30 94 Nasal Cannula 3.00 12/27/16 12:00 96.5 98 15 125/69 96 12/27/16 10:15 98.3 87 16 158/80 93 Nasal Cannula 3 12/27/16 10:00 84 16 160/83 94 Nasal Cannula 3 12/27/16 09:45 96 16 168/85 94 Nasal Cannula 3 12/27/16 09:41 98.2 101 16 174/81 98 Nasal Cannula 3 I/O 12/27/16 12/27/16 12/27/16 12/28/16 12/28/16 12/28/16 07:00 15:00 23:00 07:00 15:00 23:00 Intake Total 0 ml 1800 ml 720 ml 480 ml Output Total 800 ml 450 ml 350 ml 1000 ml Balance -800 ml 1350 ml 370 ml -520 ml Intake Oral 0 ml 500 ml 720 ml 480 ml IV Total 400 ml Other 900 ml Output Urine Total 800 ml 350 ml 350 ml 1000 ml Estimated Blood Loss 100 ml # Bowel Movements 0 Result Diagram: 12/28/16 0558 12/27/16 1437 Procedures Right ankle irrigation and debridement of skin through bone for open fracture. Right ankle open reduction and internal fixation of trimalleolar ankle fracture without fixation of the posterior lip Assessment & Plan Ortho Post Op Day #: 1 Problem List: Assessment and Plan POD #1: Right ankle irrigation and debridement of skin through bone for open fracture. Right ankle open reduction and internal fixation of trimalleolar ankle fracture without fixation of the posterior lip 1. NWB to the RLE 2. IV ABX for total of 3 days secondary to open fracture. 3. Ice to the right ankle PRN 4. Anticipatory discharge Thursday afternoon or Thursday. Patient lives in [place] and needs arrangements made to go home. Baldo Dodd December 28, 2016 07:57
[2016-12-28] MEDS: ENOXAPARIN SODIUM 40 MG/0.4 ML SYRINGE SQ SCH (08:06)
[2016-12-28 08:15] LABS: ALKALINE PHOSPHATASE 67 U/L (45-117); ALT (GPT) 49 U/L (10-53); ANION GAP 4 MEQ/L (5-15); AST (GOT) 30 U/L (15-37); BICARBONATE 30.9 MEQ/L (21.0-32.0); BLOOD UREA NITROGEN 3 MG/DL (7-18); CHLORIDE 105 MEQ/L (98-107); GLOMERULAR FILTRATION RATE 85 ML/MIN (>89); POTASSIUM 3.9 MEQ/L (3.5-5.1); SODIUM (NA) 140 MEQ/L (136-145); TOTAL BILIRUBIN ADULT 0.6 MG/DL (0.2-1.0)
[2016-12-28] MEDS: SODIUM CHLORIDE 0.9% FLUSH 10 ML FLUSH IV FLUSH SCH ×2 (09:00→20:21)
--- NOTE | 2016-12-28 10:11 | HHI.PR ---
Subjective Remarks This is a pleasant 56 y/o Female with Right ankle pain after fall, Ankle X-ray with fracture and joint dislocation, s/p reduction in ER. Repeat Ankle X-ray w/ satisfactory post reduction of joint dislocation, trimalleolar fracture. Status post Right ankle irrigation and debridement of skin through bone for open fracture. Right ankle open reduction and internal fixation of trimalleolar ankle fracture without fixation of the posterior lip as per Orthopedic access specialist recommended NWB on the RLE, IV antibiotics for 3 days, ICE to Right ankle, Thursday or Thursday Discharge, she has no complaint after Surgery, no nausea, vomit or diarrhea. Objective Vital Signs Date Time Temp Pulse Resp B/P Pulse Ox O2 Delivery O2 Flow Rate FiO2 12/28/16 08:00 97.6 92 18 127/64 95 12/28/16 04:20 98.6 82 16 110/65 98 12/28/16 00:00 99.5 83 17 111/55 97 12/27/16 20:15 98 Nasal Cannula 3.00 12/27/16 20:05 98.1 75 18 116/69 99 12/27/16 16:00 95.8 79 16 108/69 98 12/27/16 12:30 94 Nasal Cannula 3.00 12/27/16 12:00 96.5 98 15 125/69 96 12/27/16 10:15 98.3 87 16 158/80 93 Nasal Cannula 3 I/O 12/27/16 12/27/16 12/27/16 12/28/16 12/28/16 12/28/16 07:00 15:00 23:00 07:00 15:00 23:00 Intake Total 0 ml 1800 ml 720 ml 480 ml Output Total 800 ml 450 ml 350 ml 1000 ml Balance -800 ml 1350 ml 370 ml -520 ml Intake Oral 0 ml 500 ml 720 ml 480 ml IV Total 400 ml Other 900 ml Output Urine Total 800 ml 350 ml 350 ml 1000 ml Estimated Blood Loss 100 ml # Bowel Movements 0 Result Diagram: 12/28/16 0558 12/28/16 0558 Imaging Last Impressions Ankle X-Ray 12/27/16 0000 Signed Impressions: Service Date/Time: Tuesday, December 27, 2016 08:48 - CONCLUSION: Fluoroscopic images right ankle are obtained during placement of compression and along the medial malleolus screws along the distal fibula. Anthony Piper MD Chest X-Ray 12/26/16 7304 Signed Impressions: Service Date/Time: Tuesday, December 27, 2016 00:28 - CONCLUSION: Unremarkable exam. John Robb MD Procedures Status post Right ankle irrigation and debridement of skin through bone for open fracture. Right ankle open reduction and internal fixation of trimalleolar ankle fracture without fixation of the posterior lip 12/27/16 Other Results Laboratory Tests Test 12/26/16 12/27/16 12/27/16 12/28/16 23:55 00:42 01:45 05:58 Blood Type O NEGATIVE Antibody Screen NEGATIVE Blood Bank Comment Prothrombin Time 10.4 SEC Prothromb Time International 0.9 RATIO Ratio Activated Partial 25.6 SEC Thromboplast Time Urine Color LIGHT-YELLOW Urine Turbidity CLEAR Urine pH 6.0 Urine Specific [place] 1.005 Urine Protein NEG mg/dL Urine Glucose (UA) NEG mg/dL Urine Ketones NEG mg/dL Urine Occult Blood NEG Urine Nitrite NEG Urine Bilirubin NEG Urine Urobilinogen LESS THAN 2.0 MG/DL Urine Leukocyte Esterase TRACE Urine RBC LESS THAN 1 /hpf Urine WBC 4 /hpf Urine Squamous Epithelial 1 /hpf Cells Microscopic Urinalysis Comment CULT NOT INDICATED White Blood Count 8.3 TH/MM3 Red Blood Count 3.69 MIL/MM3 Hemoglobin 12.3 GM/DL Hematocrit 37.4 % Mean Corpuscular Volume 101.3 FL Mean Corpuscular Hemoglobin 33.3 PG Mean Corpuscular Hemoglobin 32.9 % Concent Red Cell Distribution Width 15.3 % Platelet Count 147 TH/MM3 Mean Platelet Volume 9.3 FL Neutrophils (%) (Auto) 66.5 % Lymphocytes (%) (Auto) 14.8 % Monocytes (%) (Auto) 15.8 % Eosinophils (%) (Auto) 2.4 % Basophils (%) (Auto) 0.5 % Neutrophils # (Auto) 5.5 TH/MM3 Lymphocytes # (Auto) 1.2 TH/MM3 Monocytes # (Auto) 1.3 TH/MM3 Eosinophils # (Auto) 0.2 TH/MM3 Basophils # (Auto) 0.0 TH/MM3 CBC Comment DIFF FINAL Differential Comment Sodium Level 140 MEQ/L Potassium Level 3.9 MEQ/L Chloride Level 105 MEQ/L Carbon Dioxide Level 30.9 MEQ/L Anion Gap 4 MEQ/L Blood Urea Nitrogen 3 MG/DL Creatinine 0.71 MG/DL Estimat Glomerular Filtration 85 ML/MIN Rate Random Glucose 140 MG/DL Calcium Level 8.3 MG/DL Total Bilirubin 0.6 MG/DL Aspartate Amino Transf 30 U/L (AST/SGOT) Alanine Aminotransferase 49 U/L (ALT/SGPT) Alkaline Phosphatase 67 U/L Total Protein 6.3 GM/DL Albumin 2.8 GM/DL Objective Remarks GENERAL: Middle-aged female in no acute distress, sleepy after sedation. HEENT: PERRLA, EOMI. No scleral icterus or conjunctival pallor. No lid lag or facial droop. CARDIOVASCULAR: Regular rate and rhythm. No obvious murmurs to auscultation. No chest tenderness to palpation. RESPIRATORY: No obvious rhonchi or wheezing. Clear to auscultation. Breath sounds equal bilaterally. GASTROINTESTINAL: Abdomen soft, non-tender, nondistended. BS normal. MUSCULOSKELETAL: Right leg with Orthotics in place. NEUROLOGICAL: Awake, alert and oriented x4. No focal neurologic deficits. Moving both upper and lower extremities spontaneously. Medications and IVs Current Medications Medications (Trade) Dose Ordered Sig/Marilin Route Start Time Stop Time Status Last Admin (NS 1000 ml Inj) 1,000 ml @ 100 mls/hr Q10H IV 12/27/16 02:09 12/27/16 02:51 (NS Flush) 2 ml UNSCH PRN IV FLUSH 12/27/16 02:15 (NS Flush) 2 ml BID IV FLUSH 12/27/16 09:00 (Zofran Inj) 4 mg Q6H PRN IVP 12/27/16 02:15 (Dulcolax Supp) 10 mg DAILY PRN RECTAL 12/27/16 02:15 Acetaminophen 650 mg 650 mg Q6H PRN PO 12/27/16 02:15 (D5W-1/2 NS 1000 ml Inj) 1,000 ml @ 100 mls/hr Q10H IV 12/27/16 09:09 12/27/16 22:57 (Lovenox Inj) 40 mg Q24H SQ 12/28/16 08:00 01/06/17 08:01 12/28/16 08:06 (Gissel-Colace) 1 tab BID PO 12/27/16 21:00 12/28/16 07:50 Magnesium Hydroxide 10 ml 10 ml Q12H PRN PO 12/27/16 09:15 (Ancef Inj/NS Inj) 100 ml @ 200 mls/hr Q8H IV 12/27/16 16:00 12/30/16 15:59 12/28/16 07:51 Miscellaneous Information UNSCH PRN XX 12/27/16 09:15 (Fisher 10-325 Mg) 1 tab Q6H PRN PO 12/27/16 09:15 12/28/16 07:21 (Fisher 10-325 Mg) 2 tab Q6H PRN PO 12/27/16 09:15 12/27/16 14:10 (Zofran Inj) 4 mg Q4H PRN IVP 12/27/16 09:15 (Theragran M Tab) 1 tab DAILY PO 12/28/16 09:00 12/28/16 07:50 (Benadryl) 25 mg Q6H PRN PO 12/27/16 09:15 (Narcan Inj) 0.4 mg UNSCH PRN IV 12/27/16 09:15 (Morphine Inj) 2 mg Q3H PRN IV PUSH 12/27/16 09:15 (Ecotrin Ec) 325 mg DAILY PO 12/28/16 09:00 12/28/16 07:50 A/P Assessment and Plan (1) Open trimalleolar fracture of right ankle ICD Code: S82.851B Status: Acute (2) Dehydration ICD Code: E86.0 Status: Acute (3) Hyperkalemia ICD Code: E87.5 Status: Acute (4) Elevated LFTs ICD Code: R94.5 Status: Acute (5) HTN (hypertension) ICD Code: I10 Status: Acute (6) Tobacco abuse ICD Code: Z72.0 Status: Acute 1. Right Open Ankle Fx: s/p mechanical trip and fall, Ankle X-ray w/ fracture and joint dislocation, s/p reduction in ER w/ repeat Ankle X-ray showing satisfactory post reduction of joint dislocation and trimalleolar fracture , Status post Right ankle irrigation and debridement of skin through bone for open fracture. Right ankle open reduction and internal fixation of trimalleolar ankle fracture without fixation of the posterior lip as per Orthopedic access specialist recommended NWB on the RLE, IV antibiotics for 3 days, ICE to Right ankle, Thursday or Thursday Discharge. 2. Tobacco Abuse: Strongly recommended to stop smoking. DVT Prophylaxis: Lovenox Social work for DC planning as needed. Discussed with patient and Physical Therapy specialist in the room, nurse Miss Ortiz Discharge Planning Expected by tomorrow in am. Scott Mendoza MD December 28, 2016 10:11
[2016-12-28] MEDS: SODIUM CHLOR 0.9% 1000 ML INJ 1,000 ML IV SCH (18:09)
[2016-12-28] MEDS: MAGNESIUM HYDROXIDE SUSP 30 ML CUP PO PRN (20:22)
[2016-12-29] VITALS (8 sets, daily range): BP systolic 106–154; BP diastolic 62–80; PULSE 82–95; RESP 14–18; TEMP 97.4–99; O2SAT 93–97
[2016-12-29] MEDS: DEXT 5%-NACL 0.45% 1000 ML INJ 1,000 ML IV SCH ×3 (01:09→19:23)
[2016-12-29] MEDS: SODIUM CHLOR 0.9% 1000 ML INJ 1,000 ML IV SCH ×3 (04:09→23:41)
[2016-12-29] MEDS: DOCUSATE SODIUM 50 MG/SENNA 8.6 MG TAB PO SCH ×2 (08:42→19:23)
[2016-12-29] MEDS: ACETAMINOPHEN/HYDROcodone 325 MG/10 MG TAB PO PRN (08:42)
[2016-12-29] MEDS: MULTIVITAMINS/MINERALS THERAPEUTIC TAB PO SCH (08:43)
[2016-12-29] MEDS: ASPIRIN EC 325 MG TABEC PO SCH (08:43)
[2016-12-29] MEDS: MAGNESIUM HYDROXIDE SUSP 30 ML CUP PO PRN (08:43)
[2016-12-29] MEDS: ENOXAPARIN SODIUM 40 MG/0.4 ML SYRINGE SQ SCH (08:44)
[2016-12-29] MEDS: SODIUM CHLORIDE 0.9% FLUSH 10 ML FLUSH IV FLUSH SCH ×2 (08:50→19:23)
--- NOTE | 2016-12-29 09:07 | HHI.PR ---
Subjective Remarks This is a pleasant 56 y/o Female with Right ankle pain after fall, Ankle X-ray with fracture and joint dislocation, s/p reduction in ER. Repeat Ankle X-ray w/ satisfactory post reduction of joint dislocation, trimalleolar fracture. Status post Right ankle irrigation and debridement of skin through bone for open fracture. Right ankle open reduction and internal fixation of trimalleolar ankle fracture without fixation of the posterior lip as per Orthopedic regulatory submissions specialist recommended NWB on the RLE, IV antibiotics for 3 days, ICE to Right ankle, Thursday or Thursday Discharge. 12/29: Seen in her bedroom in the presence of nurse Miss Ocampo, she is receiving IV antibiotics until tomorrow at 8 AM, also has constipation, asked for Front Wheel Walker, 3 in 1 Commode and Wheelchair with elevated leg rest. will discharge on [facility] for PT and Skilled nurse. no nausea, vomit or diarrhea, PT recommendations to be followed. Objective Vital Signs Date Time Temp Pulse Resp B/P Pulse Ox O2 Delivery O2 Flow Rate FiO2 12/29/16 08:47 95 21 12/29/16 08:00 99.0 92 14 132/76 93 12/29/16 04:20 98.5 88 17 154/80 94 12/29/16 00:31 97.7 82 17 131/69 95 12/28/16 20:25 99.0 102 17 167/81 95 12/28/16 19:59 94 21 12/28/16 16:00 99.0 91 18 133/74 94 12/28/16 12:00 97.6 88 18 129/72 95 12/28/16 09:10 96 Nasal Cannula 2.00 I/O 12/28/16 12/28/16 12/28/16 12/29/16 12/29/16 12/29/16 07:00 15:00 23:00 07:00 15:00 23:00 Intake Total 480 ml 240 ml 120 ml Output Total 1000 ml 675 ml Balance -520 ml -435 ml 120 ml Intake Oral 480 ml 240 ml 120 ml Output Urine Total 1000 ml 675 ml # Voids 2 2 # Bowel Movements 0 0 Result Diagram: 12/28/16 0558 12/28/16 0558 Imaging Last Impressions Ankle X-Ray 12/27/16 0000 Signed Impressions: Service Date/Time: Tuesday, December 27, 2016 08:48 - CONCLUSION: Fluoroscopic images right ankle are obtained during placement of compression and along the medial malleolus screws along the distal fibula. Anthony Piper MD Chest X-Ray 12/26/16 2678 Signed Impressions: Service Date/Time: Tuesday, December 27, 2016 00:28 - CONCLUSION: Unremarkable exam. John Robb MD Procedures Status post Right ankle irrigation and debridement of skin through bone for open fracture. Right ankle open reduction and internal fixation of trimalleolar ankle fracture without fixation of the posterior lip 12/27/16 Other Results Laboratory Tests Test 12/26/16 12/27/16 12/27/16 12/28/16 23:55 00:42 01:45 05:58 Blood Type O NEGATIVE Antibody Screen NEGATIVE Blood Bank Comment Prothrombin Time 10.4 SEC Prothromb Time International 0.9 RATIO Ratio Activated Partial 25.6 SEC Thromboplast Time Urine Color LIGHT-YELLOW Urine Turbidity CLEAR Urine pH 6.0 Urine Specific [place] 1.005 Urine Protein NEG mg/dL Urine Glucose (UA) NEG mg/dL Urine Ketones NEG mg/dL Urine Occult Blood NEG Urine Nitrite NEG Urine Bilirubin NEG Urine Urobilinogen LESS THAN 2.0 MG/DL Urine Leukocyte Esterase TRACE Urine RBC LESS THAN 1 /hpf Urine WBC 4 /hpf Urine Squamous Epithelial 1 /hpf Cells Microscopic Urinalysis Comment CULT NOT INDICATED White Blood Count 8.3 TH/MM3 Red Blood Count 3.69 MIL/MM3 Hemoglobin 12.3 GM/DL Hematocrit 37.4 % Mean Corpuscular Volume 101.3 FL Mean Corpuscular Hemoglobin 33.3 PG Mean Corpuscular Hemoglobin 32.9 % Concent Red Cell Distribution Width 15.3 % Platelet Count 147 TH/MM3 Mean Platelet Volume 9.3 FL Neutrophils (%) (Auto) 66.5 % Lymphocytes (%) (Auto) 14.8 % Monocytes (%) (Auto) 15.8 % Eosinophils (%) (Auto) 2.4 % Basophils (%) (Auto) 0.5 % Neutrophils # (Auto) 5.5 TH/MM3 Lymphocytes # (Auto) 1.2 TH/MM3 Monocytes # (Auto) 1.3 TH/MM3 Eosinophils # (Auto) 0.2 TH/MM3 Basophils # (Auto) 0.0 TH/MM3 CBC Comment DIFF FINAL Differential Comment Sodium Level 140 MEQ/L Potassium Level 3.9 MEQ/L Chloride Level 105 MEQ/L Carbon Dioxide Level 30.9 MEQ/L Anion Gap 4 MEQ/L Blood Urea Nitrogen 3 MG/DL Creatinine 0.71 MG/DL Estimat Glomerular Filtration 85 ML/MIN Rate Random Glucose 140 MG/DL Calcium Level 8.3 MG/DL Total Bilirubin 0.6 MG/DL Aspartate Amino Transf 30 U/L (AST/SGOT) Alanine Aminotransferase 49 U/L (ALT/SGPT) Alkaline Phosphatase 67 U/L Total Protein 6.3 GM/DL Albumin 2.8 GM/DL Objective Remarks GENERAL: No acute distress. HEENT: PERRLA, EOMI. No scleral icterus or conjunctival pallor. No lid lag or facial droop. CARDIOVASCULAR: Regular rate and rhythm. No obvious murmurs to auscultation. No chest tenderness to palpation. RESPIRATORY: No obvious rhonchi or wheezing. Clear to auscultation. Breath sounds equal bilaterally. GASTROINTESTINAL: Abdomen soft, non-tender, nondistended. BS normal. MUSCULOSKELETAL: Right leg with Orthotics in place. NEUROLOGICAL: Awake, alert and oriented x4. No focal neurologic deficits. Moving both upper and lower extremities spontaneously. Medications and IVs Current Medications Medications (Trade) Dose Ordered Sig/Marilin Route Start Time Stop Time Status Last Admin (NS 1000 ml Inj) 1,000 ml @ 100 mls/hr Q10H IV 12/27/16 02:09 12/27/16 02:51 (NS Flush) 2 ml UNSCH PRN IV FLUSH 12/27/16 02:15 (NS Flush) 2 ml BID IV FLUSH 12/27/16 09:00 12/29/16 08:50 (Zofran Inj) 4 mg Q6H PRN IVP 12/27/16 02:15 (Dulcolax Supp) 10 mg DAILY PRN RECTAL 12/27/16 02:15 Acetaminophen 650 mg 650 mg Q6H PRN PO 12/27/16 02:15 (D5W-1/ NS 1000 ml Inj) 1,000 ml @ 100 mls/hr Q10H IV 12/27/16 09:09 12/27/16 22:57 (Lovenox Inj) 40 mg Q24H SQ 12/28/16 08:00 01/06/17 08:01 12/29/16 08:44 (Gissel-Colace) 1 tab BID PO 12/27/16 21:00 12/29/16 08:42 Magnesium Hydroxide 10 ml 10 ml Q12H PRN PO 12/27/16 09:15 12/29/16 08:43 (Ancef Inj/NS Inj) 100 ml @ 200 mls/hr Q8H IV 12/27/16 16:00 12/30/16 15:59 12/29/16 08:43 Miscellaneous Information UNSCH PRN XX 12/27/16 09:15 (Joseph 10-325 Mg) 1 tab Q6H PRN PO 12/27/16 09:15 12/29/16 08:42 (Joseph 10-325 Mg) 2 tab Q6H PRN PO 12/27/16 09:15 12/27/16 14:10 (Zofran Inj) 4 mg Q4H PRN IVP 12/27/16 09:15 (Theragran M Tab) 1 tab DAILY PO 12/28/16 09:00 12/29/16 08:43 (Benadryl) 25 mg Q6H PRN PO 12/27/16 09:15 (Narcan Inj) 0.4 mg UNSCH PRN IV 12/27/16 09:15 (Morphine Inj) 2 mg Q3H PRN IV PUSH 12/27/16 09:15 (Ecotrin Ec) 325 mg DAILY PO 12/28/16 09:00 12/29/16 08:43 A/P Assessment and Plan (1) Open trimalleolar fracture of right ankle ICD Code: S82.851B Status: Acute (2) Dehydration ICD Code: E86.0 Status: Acute (3) Hyperkalemia ICD Code: E87.5 Status: Acute (4) Elevated LFTs ICD Code: R94.5 Status: Acute (5) HTN (hypertension) ICD Code: I10 Status: Acute (6) Tobacco abuse ICD Code: Z72.0 Status: Acute 1. Right Open Ankle Fx: s/p mechanical trip and fall, Ankle X-ray w/ fracture and joint dislocation, s/p reduction in ER w/ repeat Ankle X-ray showing satisfactory post reduction of joint dislocation and trimalleolar fracture , Status post Right ankle irrigation and debridement of skin through bone for open fracture. Right ankle open reduction and internal fixation of trimalleolar ankle fracture without fixation of the posterior lip as per Orthopedic regulatory submissions specialist recommended NWB on the RLE, will finish her antibiotics until tomorrow at 8 AM, also has constipation, asked for Front Wheel Walker, 3 in 1 Commode and Wheelchair with elevated leg rest. will discharge on [facility] for PT and Skilled nurse. no nausea, vomit or diarrhea, PT recommendations to be followed. 2. Tobacco Abuse: Strongly recommended to stop smoking. 3. Constipation given Lactulose. DVT Prophylaxis: Lovenox Social work for DC planning as needed. Discussed with patient, and seen in the room with nurse Miss Ocampo and also with Brand Specialist Miss Cutler Discharge Planning Expected by tomorrow in am. Scott Mendoza MD December 29, 2016 09:06
[2016-12-29] MEDS ORDERED: MISC-163 (10:29)
[2016-12-29] MEDS ORDERED: WHEEMIS3 (10:29)
--- NOTE | 2016-12-29 10:30 | HHI.FF ---
Face to Face Verification Diagnosis: (1) Open trimalleolar fracture of right ankle Physical Therapy Order: Evaluate and Treat, Improve ambulation, Strength and gait training Home Health Nursing Order: Medical education Signs/symptoms of disease process Medication education-adverse effect Wound care and dressing changes I have seen patient Damaris Brewer on 12/29/16. My clinical findings support the need for the requested home health care services because: Ltd mobility - disease progression High risk of falls I certify that my clinical findings support that this patient is homebound because: Unsteady gait/balance Unsafe to leave home unassisted Scott Mendoza MD December 29, 2016 10:30
[2016-12-29] MEDS ORDERED: LACTULOSE SYRUP 20 GM/30 ML CUP PO ONE (11:00)
[2016-12-29] MEDS ORDERED: SOD PHOSPHATE/SOD BIPHOSPHATE (ADULT) ENEMA 133ML RECTAL PRN (11:00)
[2016-12-29] MEDS ORDERED: GLYCERIN ADULT 2 GM SUPP RECTAL ONE (11:00)
--- NOTE | 2016-12-29 12:52 | PD.ORT.PN ---
Subjective Post Op Day #: 2 Subjective Remarks Patient OOB in chair with minimal pain to the ankle. Patient states she is planning to go home to [place] tomorrow. Objective Vitals Vital Signs Date Time Temp Pulse Resp B/P Pulse Ox O2 Delivery O2 Flow Rate FiO2 12/29/16 08:47 95 21 12/29/16 08:00 99.0 92 14 132/76 93 12/29/16 04:20 98.5 88 17 154/80 94 12/29/16 00:31 97.7 82 17 131/69 95 12/28/16 20:25 99.0 102 17 167/81 95 12/28/16 19:59 94 21 12/28/16 16:00 99.0 91 18 133/74 94 I/O 12/28/16 12/28/16 12/28/16 12/29/16 12/29/16 12/29/16 07:00 15:00 23:00 07:00 15:00 23:00 Intake Total 480 ml 240 ml 120 ml Output Total 1000 ml 675 ml Balance -520 ml -435 ml 120 ml Intake Oral 480 ml 240 ml 120 ml Output Urine Total 1000 ml 675 ml # Voids 2 2 # Bowel Movements 0 0 Result Diagram: 12/28/16 0558 12/28/16 0558 Procedures Right ankle irrigation and debridement of skin through bone for open fracture. Right ankle open reduction and internal fixation of trimalleolar ankle fracture without fixation of the posterior lip Objective Remarks Splint C/D/I. Patient moves toes and has good sensation to light touch X 5. BCR X 5. Assessment & Plan Ortho Post Op Day #: 2 Problem List: Assessment and Plan POD #2: Right ankle irrigation and debridement of skin through bone for open fracture. Right ankle open reduction and internal fixation of trimalleolar ankle fracture without fixation of the posterior lip 1. NWB to the RLE 2. IV ABX for total of 3 days secondary to open fracture. 3. Ice to the right ankle PRN 4. Anticipatory discharge Thursday afternoon or Thursday. Patient lives in [place] and needs arrangements made to go home. Baldo Dodd December 29, 2016 12:52
[2016-12-30 00:05] VITALS: BP 132/69; PULSE 95; RESP 16; TEMP 99.5; O2SAT 94
[2016-12-30] MEDS: DEXT 5%-NACL 0.45% 1000 ML INJ 1,000 ML IV SCH (07:09)
[2016-12-30 08:00] VITALS: BP 115/61; PULSE 76; RESP 18; TEMP 97.6; O2SAT 98
[2016-12-30] MEDS: DOCUSATE SODIUM 50 MG/SENNA 8.6 MG TAB PO SCH (09:00)
[2016-12-30] MEDS: MULTIVITAMINS/MINERALS THERAPEUTIC TAB PO SCH (09:03)
[2016-12-30] MEDS: ASPIRIN EC 325 MG TABEC PO SCH (09:03)
[2016-12-30] MEDS: ENOXAPARIN SODIUM 40 MG/0.4 ML SYRINGE SQ SCH (09:04)
[2016-12-30] MEDS: SODIUM CHLORIDE 0.9% FLUSH 10 ML FLUSH IV FLUSH SCH (09:05)
[2016-12-30] MEDS: SODIUM CHLOR 0.9% 1000 ML INJ 1,000 ML IV SCH (10:09)
--- NOTE | 2016-12-30 11:34 | HHI.PR ---
Subjective Remarks This is a pleasant 56 y/o Female with Right ankle pain after fall, Ankle X-ray with fracture and joint dislocation, s/p reduction in ER. Repeat Ankle X-ray w/ satisfactory post reduction of joint dislocation, trimalleolar fracture. Status post Right ankle irrigation and debridement of skin through bone for open fracture. Right ankle open reduction and internal fixation of trimalleolar ankle fracture without fixation of the posterior lip as per Orthopedic call center specialist recommended NWB on the RLE, IV antibiotics for 3 days, ICE to Right ankle, Thursday or Thursday Discharge. 12/29: Seen in her bedroom in the presence of nurse Miss Ocampo, she is receiving IV antibiotics until tomorrow at 8 AM, also has constipation, asked for Front Wheel Walker, 3 in 1 Commode and Wheelchair with elevated leg rest. will discharge on [facility] for PT and Skilled nurse. no nausea, vomit or diarrhea, PT recommendations to be followed. 12/30: Patient stable in her bedroom, no complaint, no nausea, vomit or diarrhea , as per Orthopedic Surgery was recommended on POD #2: Right ankle irrigation and debridement of skin through bone for open fracture. Right ankle open reduction and internal fixation of trimalleolar ankle fracture without fixation of the posterior lip 1. NWB to the RLE 2. IV ABX for total of 3 days secondary to open fracture. 3. Ice to the right ankle PRN 4. Anticipatory discharge Thursday afternoon or Thursday. Patient lives in [place] and needs arrangements made to go home. today ready for discharge but as per Internal Control Manager the patient has no Insurance information and was not possible to get her HHC she will go to see her PCP in [place] and will get her HHC in [place], on the other hand she states she has good support by her at home. Objective Vital Signs Date Time Temp Pulse Resp B/P Pulse Ox O2 Delivery O2 Flow Rate FiO2 12/30/16 08:00 97.6 76 18 115/61 98 12/30/16 00:05 99.5 95 16 132/69 94 12/29/16 20:00 98.7 95 16 116/62 97 12/29/16 19:33 97 21 12/29/16 16:00 98.4 89 18 112/67 97 12/29/16 12:00 97.4 89 18 106/68 96 I/O 12/29/16 12/29/16 12/29/16 12/30/16 12/30/16 12/30/16 07:00 15:00 23:00 07:00 15:00 23:00 Intake Total 120 ml 1260 ml 340 ml Balance 120 ml 1260 ml 340 ml Intake Oral 120 ml 1260 ml 240 ml IV Total 100 ml # Voids 2 7 2 # Bowel Movements 0 7 0 Result Diagram: 12/28/16 0558 12/28/16 0558 Imaging Last Impressions Ankle X-Ray 12/27/16 0000 Signed Impressions: Service Date/Time: Tuesday, December 27, 2016 08:48 - CONCLUSION: Fluoroscopic images right ankle are obtained during placement of compression and along the medial malleolus screws along the distal fibula. Anthony Piper MD Chest X-Ray 12/26/16 2338 Signed Impressions: Service Date/Time: Tuesday, December 27, 2016 00:28 - CONCLUSION: Unremarkable exam. John Robb MD Procedures Status post Right ankle irrigation and debridement of skin through bone for open fracture. Right ankle open reduction and internal fixation of trimalleolar ankle fracture without fixation of the posterior lip 12/27/16 Other Results Laboratory Tests Test 12/26/16 12/27/16 12/27/16 12/28/16 23:55 00:42 01:45 05:58 Blood Type O NEGATIVE Antibody Screen NEGATIVE Blood Bank Comment Prothrombin Time 10.4 SEC Prothromb Time International 0.9 RATIO Ratio Activated Partial 25.6 SEC Thromboplast Time Urine Color LIGHT-YELLOW Urine Turbidity CLEAR Urine pH 6.0 Urine Specific [place] 1.005 Urine Protein NEG mg/dL Urine Glucose (UA) NEG mg/dL Urine Ketones NEG mg/dL Urine Occult Blood NEG Urine Nitrite NEG Urine Bilirubin NEG Urine Urobilinogen LESS THAN 2.0 MG/DL Urine Leukocyte Esterase TRACE Urine RBC LESS THAN 1 /hpf Urine WBC 4 /hpf Urine Squamous Epithelial 1 /hpf Cells Microscopic Urinalysis Comment CULT NOT INDICATED White Blood Count 8.3 TH/MM3 Red Blood Count 3.69 MIL/MM3 Hemoglobin 12.3 GM/DL Hematocrit 37.4 % Mean Corpuscular Volume 101.3 FL Mean Corpuscular Hemoglobin 33.3 PG Mean Corpuscular Hemoglobin 32.9 % Concent Red Cell Distribution Width 15.3 % Platelet Count 147 TH/MM3 Mean Platelet Volume 9.3 FL Neutrophils (%) (Auto) 66.5 % Lymphocytes (%) (Auto) 14.8 % Monocytes (%) (Auto) 15.8 % Eosinophils (%) (Auto) 2.4 % Basophils (%) (Auto) 0.5 % Neutrophils # (Auto) 5.5 TH/MM3 Lymphocytes # (Auto) 1.2 TH/MM3 Monocytes # (Auto) 1.3 TH/MM3 Eosinophils # (Auto) 0.2 TH/MM3 Basophils # (Auto) 0.0 TH/MM3 CBC Comment DIFF FINAL Differential Comment Sodium Level 140 MEQ/L Potassium Level 3.9 MEQ/L Chloride Level 105 MEQ/L Carbon Dioxide Level 30.9 MEQ/L Anion Gap 4 MEQ/L Blood Urea Nitrogen 3 MG/DL Creatinine 0.71 MG/DL Estimat Glomerular Filtration 85 ML/MIN Rate Random Glucose 140 MG/DL Calcium Level 8.3 MG/DL Total Bilirubin 0.6 MG/DL Aspartate Amino Transf 30 U/L (AST/SGOT) Alanine Aminotransferase 49 U/L (ALT/SGPT) Alkaline Phosphatase 67 U/L Total Protein 6.3 GM/DL Albumin 2.8 GM/DL Objective Remarks GENERAL: No acute distress. HEENT: PERRLA, EOMI. No scleral icterus or conjunctival pallor. No lid lag or facial droop. CARDIOVASCULAR: Regular rate and rhythm. No obvious murmurs to auscultation. No chest tenderness to palpation. RESPIRATORY: No obvious rhonchi or wheezing. Clear to auscultation. Breath sounds equal bilaterally. GASTROINTESTINAL: Abdomen soft, non-tender, nondistended. BS normal. MUSCULOSKELETAL: Right leg with Orthotics in place. NEUROLOGICAL: Awake, alert and oriented x4. No focal neurologic deficits. Moving both upper and lower extremities spontaneously. Medications and IVs Current Medications Medications (Trade) Dose Ordered Sig/Marilin Route Start Time Stop Time Status Last Admin (NS 1000 ml Inj) 1,000 ml @ 100 mls/hr Q10H IV 12/27/16 02:09 12/27/16 02:51 (NS Flush) 2 ml UNSCH PRN IV FLUSH 12/27/16 02:15 (NS Flush) 2 ml BID IV FLUSH 12/27/16 09:00 12/30/16 09:05 (Zofran Inj) 4 mg Q6H PRN IVP 12/27/16 02:15 (Dulcolax Supp) 10 mg DAILY PRN RECTAL 12/27/16 02:15 Acetaminophen 650 mg 650 mg Q6H PRN PO 12/27/16 02:15 (D5W-1/2 NS 1000 ml Inj) 1,000 ml @ 100 mls/hr Q10H IV 12/27/16 09:09 12/27/16 22:57 (Lovenox Inj) 40 mg Q24H SQ 12/28/16 08:00 01/06/17 08:01 12/30/16 09:04 (Gissel-Colace) 1 tab BID PO 12/27/16 21:00 12/29/16 08:42 Magnesium Hydroxide 10 ml 10 ml Q12H PRN PO 12/27/16 09:15 12/29/16 08:43 (Ancef Inj/NS Inj) 100 ml @ 200 mls/hr Q8H IV 12/27/16 16:00 12/30/16 15:59 12/30/16 09:04 Miscellaneous Information UNSCH PRN XX 12/27/16 09:15 (Morley 10-325 Mg) 1 tab Q6H PRN PO 12/27/16 09:15 12/29/16 08:42 (Morley 10-325 Mg) 2 tab Q6H PRN PO 12/27/16 09:15 12/27/16 14:10 (Zofran Inj) 4 mg Q4H PRN IVP 12/27/16 09:15 (Theragran M Tab) 1 tab DAILY PO 12/28/16 09:00 12/30/16 09:03 (Benadryl) 25 mg Q6H PRN PO 12/27/16 09:15 (Narcan Inj) 0.4 mg UNSCH PRN IV 12/27/16 09:15 (Morphine Inj) 2 mg Q3H PRN IV PUSH 12/27/16 09:15 (Ecotrin Ec) 325 mg DAILY PO 12/28/16 09:00 12/30/16 09:03 (Fleets Enema (Adult)) 133 ml UNSCH PRN RECTAL 12/29/16 11:00 A/P Assessment and Plan (1) Open trimalleolar fracture of right ankle ICD Code: S82.851B Status: Acute (2) Dehydration ICD Code: E86.0 Status: Acute (3) Hyperkalemia ICD Code: E87.5 Status: Acute (4) Elevated LFTs ICD Code: R94.5 Status: Acute (5) HTN (hypertension) ICD Code: I10 Status: Acute (6) Tobacco abuse ICD Code: Z72.0 Status: Acute 1. Right Open Ankle Fx: s/p mechanical trip and fall, Ankle X-ray w/ fracture and joint dislocation, s/p reduction in ER w/ repeat Ankle X-ray showing satisfactory post reduction of joint dislocation and trimalleolar fracture , Status post Right ankle irrigation and debridement of skin through bone for open fracture. Right ankle open reduction and internal fixation of trimalleolar ankle fracture without fixation of the posterior lip as per Orthopedic call center specialist recommended NWB on the RLE, will finish her antibiotics until tomorrow at 8 AM, also has constipation, asked for Front Wheel Walker, 3 in 1 Commode and Wheelchair with elevated leg rest. will discharge on [facility] for PT and Skilled nurse. no nausea, vomit or diarrhea, PT recommendations to be followed. Patient stable in her bedroom, no complaint, no nausea, vomit or diarrhea, as per Orthopedic Surgery was recommended on POD #2: Right ankle irrigation and debridement of skin through bone for open fracture. Right ankle open reduction and internal fixation of trimalleolar ankle fracture without fixation of the posterior lip 1. NWB to the RLE 2. IV ABX for total of 3 days secondary to open fracture. 3. Ice to the right ankle PRN 4. Anticipatory discharge Thursday afternoon or Thursday. Patient lives in [place] and needs arrangements made to go home. today ready for discharge but as per Internal Control Manager the patient has no Insurance information and was not possible to get her HHC she will go to see her PCP in [place] and will get her HHC in [place], on the other hand she states she has good support by her at home. 2. Tobacco Abuse: Strongly recommended to stop smoking. 3. Constipation Improved. DVT Prophylaxis: Lovenox Social work for DC planning as needed. Discussed with patient, and also with Internal Control Manager Miss Cutler who is in the room talking with patient while I was in the room Discharge Planning Discharge Home today. Scott Mendoza MD December 30, 2016 11:34
--- NOTE | 2016-12-30 11:37 | HHI.DS ---
Discharge Summary Admission Date December 27, 2016 at 02:11 Discharge Date: December 30, 2016 Admitting Diagnosis compound fracture right ankle (1) Open trimalleolar fracture of right ankle ICD Code: S82.851B Diagnosis: Principal (2) HTN (hypertension) ICD Code: I10 Diagnosis: Secondary (3) Tobacco abuse ICD Code: Z72.0 Diagnosis: Secondary Procedures Status post Right ankle irrigation and debridement of skin through bone for open fracture. Right ankle open reduction and internal fixation of trimalleolar ankle fracture without fixation of the posterior lip 12/27/16 Brief History - From Admission This is a 56-year-old female with no reported PMH who was brought to the ER secondary to right ankle pain after fall. Pt visiting from out of town and staying at [facility], states she tripped on the lip of the balcony door and twisted her ankle, felt immediate pain and unable to bare weight. On arrival, BP 169/81, HR 99, O2 sat 100% on RA, Afebrile. CBC unremarkable except for Hgb 15.5. K+ 6.0. GFR 85. AST 121, ALT 97. INR 0.9. UA negative. Ankle X-ray with fracture and joint dislocation, s/p reduction in ER. Repeat Ankle X-ray w / satisfactory post reduction of joint dislocation, trimalleolar fracture. CXR w/ no acute findings. Dr. Castillo consulted by ER physician, plan is for surgical intervention in am. CBC/BMP: 12/28/16 0558 12/28/16 0558 Significant Findings Laboratory Tests Test 12/28/16 05:58 Red Blood Count 3.69 MIL/MM3 (4.00-5.30) Mean Corpuscular Volume 101.3 FL (80.0-100.0) Platelet Count 147 TH/MM3 (150-450) Monocytes (%) (Auto) 15.8 % (0.0-8.0) Monocytes # (Auto) 1.3 TH/MM3 (0-0.9) Anion Gap 4 MEQ/L (5-15) Blood Urea Nitrogen 3 MG/DL (7-18) Estimat Glomerular Filtration 85 ML/MIN (>89) Rate Random Glucose 140 MG/DL (74-106) Calcium Level 8.3 MG/DL (8.5-10.1) Total Protein 6.3 GM/DL (6.4-8.2) Albumin 2.8 GM/DL (3.4-5.0) Imaging Last Impressions Ankle X-Ray 12/27/16 0000 Signed Impressions: Service Date/Time: Tuesday, December 27, 2016 08:48 - CONCLUSION: Fluoroscopic images right ankle are obtained during placement of compression and along the medial malleolus screws along the distal fibula. Anthony Piper MD Chest X-Ray 12/26/16 2338 Signed Impressions: Service Date/Time: Tuesday, December 27, 2016 00:28 - CONCLUSION: Unremarkable exam. John Robb MD PE at Discharge GENERAL: No acute distress. HEENT: PERRLA, EOMI. No scleral icterus or conjunctival pallor. No lid lag or facial droop. CARDIOVASCULAR: Regular rate and rhythm. No obvious murmurs to auscultation. No chest tenderness to palpation. RESPIRATORY: No obvious rhonchi or wheezing. Clear to auscultation. Breath sounds equal bilaterally. GASTROINTESTINAL: Abdomen soft, non-tender, nondistended. BS normal. MUSCULOSKELETAL: Right leg with Orthotics in place. NEUROLOGICAL: Awake, alert and oriented x4. No focal neurologic deficits. Moving both upper and lower extremities spontaneously. Hospital Course This is a pleasant 56 y/o Female with Right ankle pain after fall, Ankle X-ray with fracture and joint dislocation, s/p reduction in ER. Repeat Ankle X-ray w/ satisfactory post reduction of joint dislocation, trimalleolar fracture. Status post Right ankle irrigation and debridement of skin through bone for open fracture. Right ankle open reduction and internal fixation of trimalleolar ankle fracture without fixation of the posterior lip as per Orthopedic explosive ordnance specialist recommended NWB on the RLE, IV antibiotics for 3 days, ICE to Right ankle, Thursday or Thursday Discharge. 12/29: Seen in her bedroom in the presence of nurse Damaris, she is receiving IV antibiotics until tomorrow at 8 AM, also has constipation, asked for Front Wheel Walker, 3 in 1 Commode and Wheelchair with elevated leg rest. will discharge on [facility] for PT and Skilled nurse. no nausea, vomit or diarrhea, PT recommendations to be followed. /: Patient stable in her bedroom, no complaint, no nausea, vomit or diarrhea , as per Orthopedic Surgery was recommended on POD #2: Right ankle irrigation and debridement of skin through bone for open fracture. Right ankle open reduction and internal fixation of trimalleolar ankle fracture without fixation of the posterior lip 1. NWB to the RLE 2. IV ABX for total of 3 days secondary to open fracture. 3. Ice to the right ankle PRN 4. Anticipatory discharge Thursday or Thursday. Patient lives in [place] and needs arrangements made to go home. today ready for discharge but as per Electrical Assistant the patient has no Insurance information and was not possible to get her HHC she will go to see her PCP in [place] and will get her HHC in [place], on the other hand she states she has good support by her at home. Assessment and Plan 1. Right Open Ankle Fx: s/p mechanical trip and fall, Ankle X-ray w/ fracture and joint dislocation, s/p reduction in ER w/ repeat Ankle X-ray showing satisfactory post reduction of joint dislocation and trimalleolar fracture , Status post Right ankle irrigation and debridement of skin through bone for open fracture. Right ankle open reduction and internal fixation of trimalleolar ankle fracture without fixation of the posterior lip as per Orthopedic explosive ordnance specialist recommended NWB on the RLE, will finish her antibiotics until tomorrow at 8 AM, also has constipation, asked for Front Wheel Walker, 3 in 1 Commode and Wheelchair with elevated leg rest. will discharge on [facility] for PT and Skilled nurse. no nausea, vomit or diarrhea, PT recommendations to be followed. Patient stable in her bedroom, no complaint, no nausea, vomit or diarrhea, as per Orthopedic Surgery was recommended on POD #2: Right ankle irrigation and debridement of skin through bone for open fracture. Right ankle open reduction and internal fixation of trimalleolar ankle fracture without fixation of the posterior lip 1. NWB to the RLE 2. IV ABX for total of 3 days secondary to open fracture. 3. Ice to the right ankle PRN 4. Anticipatory discharge Thursday or Thursday. Patient lives in [place] and needs arrangements made to go home. today ready for discharge but as per Electrical Assistant the patient has no Insurance information and was not possible to get her HHC she will go to see her PCP in [place] and will get her HHC in [place], on the other hand she states she has good support by her at home. 2. Tobacco Abuse: Strongly recommended to stop smoking. 3. Constipation Improved. DVT Prophylaxis: Lovenox Social work for DC planning as needed. Discussed with patient, and also with Electrical Assistant Miss Cutler who is in the room talking with patient while I was in the room Discharge Planning Discharge Home today. Pt Condition on Discharge: Good Discharge Disposition: Disch w/ Home Health Serv Discharge Time: <= 30 minutes Discharge Instructions DIET: Follow Instructions for: As Tolerated, No Restrictions Activities you can perform: Non Weight Bearing Scott Mendoza MD December 30, 2016 11:37
[2016-12-30 12:00] VITALS: BP 140/70; PULSE 98; RESP 18; TEMP 96.4; O2SAT 95
[2016-12-30 16:00] VITALS: BP 129/70; PULSE 86; RESP 18; TEMP 98.1; O2SAT 94
--- NOTE | 2016-12-30 16:33 | PD.ORT.PN ---
Subjective Subjective Remarks no complaints, ambulating well Objective Vitals Vital Signs Date Time Temp Pulse Resp B/P Pulse Ox O2 Delivery O2 Flow Rate FiO2 12/30/16 16:00 98.1 86 18 129/70 94 12/30/16 12:00 96.4 98 18 140/70 95 12/30/16 08:00 97.6 76 18 115/61 98 12/30/16 00:05 99.5 95 16 132/69 94 12/29/16 20:00 98.7 95 16 116/62 97 12/29/16 19:33 97 21 I/O 12/29/16 12/29/16 12/29/16 12/30/16 12/30/16 12/30/16 07:00 15:00 23:00 07:00 15:00 23:00 Intake Total 120 ml 1260 ml 340 ml 720 ml Balance 120 ml 1260 ml 340 ml 720 ml Intake Oral 120 ml 1260 ml 240 ml 720 ml IV Total 100 ml # Voids 2 7 2 5 # Bowel Movements 0 7 0 0 Result Diagram: 12/28/16 0558 12/28/16 0558 Procedures Right ankle irrigation and debridement of skin through bone for open fracture. Right ankle open reduction and internal fixation of trimalleolar ankle fracture without fixation of the posterior lip Objective Remarks Splint C/D/I. Patient moves toes and has good sensation to light touch X 5. BCR X 5. Assessment & Plan Assessment and Plan POD #3: Right ankle irrigation and debridement of skin through bone for open fracture. Right ankle open reduction and internal fixation of trimalleolar ankle fracture without fixation of the posterior lip 1. NWB to the RLE 2. Completed IV ABX for total of 3 days secondary to open fracture. 3. Ice to the right ankle PRN 4. Anticipatory discharge today. Patient lives in [place] and needs arrangements made to go home. Wang Castillo MD December 30, 2016 16:33
== END 2016-12-30 16:51 | disposition home or self-care (01) | DRG 494 ==
LOC: HOR 23:24 → NEDA 12-27 02:11 → N06B 12-27 03:21
PROVIDERS: ADMIT Internal Medicine; ATTEND Internal Medicine
PROC: 0QSG04Z Reposition Right Tibia with Internal Fixation Device, Open Approach (ICD-10-PCS; 2016-12-27)
PROC: 0QSJ04Z Reposition Right Fibula with Internal Fixation Device, Open Approach (ICD-10-PCS; principal; 2016-12-27 07:29)
DX: S82.851B Displaced trimalleolar fracture of right lower leg, initial encounter for open fracture type I or II (principal); E87.5 Hyperkalemia; I10 Essential (primary) hypertension; W01.0XXA Fall on same level from slipping, tripping and stumbling without subsequent striking against object, initial encounter; Y92.89 Other specified places as the place of occurrence of the external cause; E86.0 Dehydration; K59.00 Constipation, unspecified; R79.89 Other specified abnormal findings of blood chemistry; F17.210 Nicotine dependence, cigarettes, uncomplicated
CPT/HCPCS: 27840; 51702; 71010; 73600; 76000; 80053; 81001; 84132; 85025; 85610; 85730; 86850; 86900; 86901; 93005; 94150; 96374; 96375; 99152; 99153; C1713; J0131; J0610; J0690; J1580; J1650; J1815; J2250; J2270; J2405; J3010; J3370; J7030